=== PATIENT | female | born 1975 | race American Indian/Alaskan Native ===

== ENCOUNTER 2021-12-30 14:00 | Inpatient (IN) | payer MEDICARE ==
--- NOTE | 2021-12-30 14:34 | Consultation ---
History of Present Illness Consult date: 12/30/21 History of present illness: [facility] Consult Note # Demographics Consult Type: Acute Stroke Level 2 (4.5-24 hrs) Patient Location: Emergency Room First Name: LEFTY Last Name: TRICIA Date of : 1975 Age: 46 Gender: Female Facility: [facility] Time of Initial Page ( Time): 12/30/2021, 14:07 Time of Return Call ( Time): 12/30/2021, 14:07 # HPI Chief Complaint: vision changes speech changes weakness (focal) History: Per EMS, patient developed stroke-like symptoms two days ago with blurred vision, then dysarthria yesterday. Reported having left facial droop. History of MS. Last Known Normal: I have collected independent history specific to time last normal or last known well. We have collaborated with the provider and at this time, we have the most current timeline with the information that is available. 2 days Duration: constant intermittent days Associated Symptoms: double vision # Scores Time of exam and NIHSS ( Time): 12/30/2021, 14:20 Level of Consciousness 1a: [0] = Alert; keenly responsive LOC Questions 1b: [0] = Answers both questions correctly LOC Commands 1c: [0] = Performs both tasks correctly Best Gaze 2: [0] = Normal Visual 3: [0] = No visual loss Facial Palsy 4: [0] = Normal symmetrical movements Motor Arm Left 5a: [0] = No drift Motor Arm Right 5b: [0] = No drift Motor Leg Left 6a: [0] = No drift Motor Leg Right 6b: [0] = No drift Limb Ataxia 7: [0] = Absent Sensory 8: [0] = Normal Best Language 9: [0] = No aphasia Dysarthria 10: [0] = Normal Extinction and Inattention 11: [0] = No abnormality NIHSS Total: 0 Modified [place] Scale (mRS) pre-stroke: [0] = No Symptoms Modified [place] Scale total: 0 VAN Screening: Negative # Exam SBP: 183 DBP: 95 Mental Status: awake alert and oriented x 3 follows commands Language: normal speech Cranial Nerves: extra ocular movements intact # ROS Pulmonary: shortness of breath Cardiovascular: no chest pain # PMH-FH-SH Past Medical History: Diabetes hypertension MS Medications: antihypertensive diabetic medication # Data Glucose: 393 # Assessment Impression: MS exacerbation (or pseudoflare), rule-out stroke # Plan Thrombolytic/Intervention: NOT IV Thrombolysis or IA Intervention candidate Thrombolytic Exclusion (< 3 hour window): time of onset unclear Thrombolytic Exclusion: > 4.5 hours Labs: B12 CBC comprehensive metabolic panel ESR hemoglobin A1c lipid panel thiamine troponin TSH urine drug screen ua Infectious work-up Imaging: (urgency: STAT): CT Head without contrast CT Angiogram Head and CT Angiogram Neck AND call back with results if abnormal Imaging: (urgency: routine): MRI Brain with AND without contrast MRI C spine Diagnostic Test: echo without bubble study Therapy/Evaluation: NPO until swallow evaluation PT/OT evaluation speech/swallow consultation Medication: Continue outpatient medication regimen pending diagnostic results, with consideration for IV steroid therapy if MRI reveals new active demyelinating lesions. DVT Prophylaxis: SCD chemical DVT prophylaxis Other: If patient has any neurological deterioration please call me back immediately telemetry monitoring would not pursue stroke work-up if MRI is negative I have discussed my recommendations with the referring provider Disposition: admit # Demographics First Name: LEFTY Last Name: TRICIA Facility: [facility] Medications and Allergies Allergies Allergy/AdvReac Type Severity Reaction Status Date / Time Unable to Assess Allergy Verified 12/30/21 14:07
--- NOTE | 2021-12-30 15:09 | Cat Scan Report ---
CT HEAD WITHOUT CONTRAST INDICATION / CLINICAL INFORMATION: Stroke symptoms. TECHNIQUE: All CT scans at this location are performed using CT dose reduction for ALARA by means of automated e xposure control. COMPARISON: None available. FINDINGS: HEMORRHAGE: No evidence of intracranial hemorrhage or extra-axial fluid collection. EXTRA-AXIAL SPACES: Cortical sulci, sylvian fissures and basilar cisterns have an unremarkable appear ance. VENTRICULAR SYSTEM: The third and lateral ventricles are of normal size and configuration. CEREBRAL PARENCHYMA: Extensive white matter lucency is observed in the periventricular, deep and subc ortical white matter of both cerebral hemispheres. Findings suggest advanced microvascular ischemic c hange. This is an unusual finding in a 46-year-old individual. Other predisposing factors such as hyp ertension, diabetes, cigarette smoking or renal failure In the appropriate clinical setting the possi bility of demyelinating disease could be considered. There is no mass effect. No evidence of recent i nfarction is observed. MIDLINE SHIFT OR HERNIATION: There is no mass effect. CEREBELLUM / BRAINSTEM: Brainstem and cerebellum have an unremarkable appearance. MIDLINE STRUCTURES:No abnormalities of the pituitary gland or pineal region are identified. INTRACRANIAL VESSELS:No abnormalities are identified on this noncontrast head CT. ORBITS: visualized portions of the orbits have an unremarkable appearance. SOFT TISSUES of HEAD: No significant abnormality. CALVARIUM: Evaluation of bone windows reveals no abnormalities. PARANASAL SINUSES / MASTOID AIR CELLS: Visualized portions of the paranasal sinuses are free from inf lammatory mucosal disease. Mastoid air cells are normally pneumatized. ADDITIONAL FINDINGS: None. IMPRESSION: 1. Extensive white matter lucency as described above. This likely reflects advanced microvascular isc hemic change. Correlation with risk factors including hypertension, diabetes, renal failure and cigar ette smoking is suggested. 2. No acute intracranial abnormalities are identified. Signer Name: Avni Delvalle MD Signed: 12/30/2021 3:04 PM Workstation Name: [id number]
[2021-12-30 16:10] LABS: Creatine Kinase MB 3.4 ng/mL (0.0-4.0)
[2021-12-30 16:22] LABS: Basophils % (Auto) 0.8 % (0.0-1.8); Eosinophils # (Auto) 0.1 K/mm3 (0.0-0.4); Eosinophils % (Auto) 2.1 % (0.0-4.3); Hematocrit 39.7 % (30.3-42.9); Hemoglobin 12.3 gm/dl (10.1-14.3); Lymphocytes # (Auto) 1.7 K/mm3 (1.2-5.4); Lymphocytes % (Auto) 38.8 % (13.4-35.0); Mean Corpuscular HGB Conc 31 % (30-34); Mean Corpuscular Volume 76 fl (79-97); Monocytes # (Auto) 0.3 K/mm3 (0.0-0.8); Platelet Count 178 K/mm3 (140-440); Red Blood Count 5.25 M/mm3 (3.65-5.03); Red Cell Distribution Width 15.4 % (13.2-15.2)
[2021-12-30 16:32] LABS: INR 0.86 (0.87-1.13); Partial Thromboplastin Time 28.2 Sec. (24.2-36.6); Thrombin Time 17.2 Sec. (15.1-19.6)
[2021-12-30 18:48] LABS: BUN/Creatinine Ratio 18; Blood Urea Nitrogen 16 mg/dL (7-17); Hemolysis Index 4
[2021-12-30] MEDS ORDERED: SODIUM CHLORIDE 0.9% 1000 ML 1,000 ML IV ONE (18:54)
[2021-12-30] MEDS ORDERED: INSULIN REGULAR, HUMAN 100 UNITS/1 ML IV ONE (18:55)
--- NOTE | 2021-12-30 19:51 | Cat Scan Report ---
CT angio neck HISTORY: CVA symptoms 100ml of [id number] COMPARISON: CT head same day. TECHNIQUE: CTA of the neck and head is performed after IV contrast. 3-D/MIP reformats were postproces sed. Percentage stenosis is determined by direct quantitative measurements of diseased internal adorno tid artery diameter compared with normal distal internal carotid artery reference segments or by crit eria similar to NASCET where applicable. All CT scans at this location are performed using CT dose re duction for ALARA by means of automated exposure control. FINDINGS: CTA NECK: Aortic arch: No significant abnormality. Cervical vertebral arteries: The right vertebral artery is diminutive throughout its entire course. D ominant left vertebral artery. No occlusion or hemodynamically significant stenosis. Common Carotid arteries: No occlusion or hemodynamically significant stenosis. Internal carotid arteries: No occlusion or hemodynamically significant stenosis. CTA HEAD: Intracranial internal carotid arteries: No occlusion or significant stenosis. Anterior cerebral arteries: No occlusion or significant stenosis. Middle cerebral arteries: No occlusion or significant stenosis. Intracranial vertebral arteries: The distal right V4 segment of the vertebral artery is difficult to appreciate but the entire course is diminutive and it is tortuous distally right before the basilar j unction. There could be high stenosis or occlusion but this is difficult to determine given its dimin utive caliber. Basilar artery: No occlusion or significant stenosis. Posterior cerebral arteries: No occlusion or significant stenosis. No aneurysm. Additional findings: White matter disease, please see CT head. IMPRESSION: 1. CTA NECK: The right vertebral artery is diminutive with a dominant left vertebral artery, normal v ariant. No occlusion or significant stenosis of the carotid or vertebral arteries. 2. CTA HEAD: The distal right V4 segment just before the basilar junction is difficult to appreciate and could be related to high-grade stenosis or occlusion is difficult to determine. The dominant left vertebral artery is widely patent. The remainder of the vessels are widely patent without occlusion or significant stenosis. Signer Name: Abraham Roca MD Signed: 12/30/2021 7:47 PM Workstation Name: [id number]
--- NOTE | 2021-12-30 19:59 | Emergency Department Report ---
ED Neuro Deficit HPI - General Chief Complaint: Neuro Symptoms/Deficit Stated Complaint: STROKE SYMPTOMS Time Seen by Provider: 12/30/21 14:14 Source: patient, EMS Mode of arrival: Stretcher Limitations: No Limitations - History of Present Illness Initial Comments: Patient is a 46-year-old female history of MS presenting to ED with complaint of left-sided weakness, vision changes and numbness in her face beginning 2 days ago. - Related Data Allergies/Adverse Reactions: Allergies Allergy/AdvReac Type Severity Reaction Status Date / Time Unable to Assess Allergy Verified 12/30/21 14:07 ED Review of Systems ROS: Stated complaint: STROKE SYMPTOMS Other details as noted in HPI Constitutional: denies: chills, fever Respiratory: denies: cough, shortness of breath, wheezing Cardiovascular: denies: chest pain, palpitations Gastrointestinal: denies: abdominal pain, nausea, diarrhea Genitourinary: denies: urgency, dysuria, discharge Neurological: weakness, numbness Psychiatric: denies: anxiety, depression ED Neuro Physical Exam - General Limitations: No Limitations General appearance: alert, in no apparent distress Suspected Stroke: Yes - Head Head exam: Present: atraumatic, normocephalic - Eye Eye exam: Present: normal appearance, EOMI - Respiratory Respiratory exam: Present: normal lung sounds bilaterally. Absent: respiratory distress - Cardiovascular Cardiovascular Exam: Present: regular rate, normal rhythm, normal heart sounds - GI/Abdominal GI/Abdominal exam: Present: soft. Absent: distended, tenderness - Rectal Rectal exam: Present: deferred - Neurological Exam Neurological exam: Present: alert, oriented X3, CN II-XII intact - NIHSS Assessment Interval: 24 hours post onset of symptoms +-20 minutes 1a. Level of Consciousness: alert/keenly responsive 1b. LOC Questions: answers both correctly 1c. LOC Commands: performs tasks correctly 2. Best Gaze: normal 3. Visual: no visual loss 4. Facial Palsy: normal symmetrical movement 5b. Motor Arm Right: no drift 5a. Motor Arm Left: no drift 6a. Motor Leg Left: no drift 6b. Motor Leg Right: no drift 7. Limb Ataxia: absent 8. Sensory: normal 9. Best Language: no aphasia 10. Dysarthria: normal 11. Extinction/Inattention: no abnormality Total Score: 0 Stroke Severity: No Stroke Symptoms - Psychiatric Psychiatric exam: Present: normal affect, normal mood - Skin Skin exam: Present: warm, dry, intact, normal color ED Course Vital Signs 12/30/21 12/30/21 12/30/21 14:45 15:00 15:17 Temperature 98.7 F Pulse Rate 87 Respiratory 22 Rate Blood Pressure 157/87 O2 Sat by Pulse 100 100 Oximetry 12/30/21 12/30/21 12/30/21 16:00 17:28 18:00 Temperature Pulse Rate 87 91 H 81 Respiratory 20 15 14 Rate Blood Pressure 142/79 162/83 158/92 O2 Sat by Pulse 97 95 99 Oximetry 12/30/21 18:56 Temperature Pulse Rate Respiratory Rate Blood Pressure O2 Sat by Pulse 100 Oximetry - Lab Data Result diagrams: 12/30/21 15:16 12/30/21 15:16 Lab Results 12/30/21 12/30/21 12/30/21 Range/Units 15:16 15:16 15:16 WBC 4.4 L (4.5-11.0) K/mm3 RBC 5.25 H (3.65-5.03) M/mm3 Hgb 12.3 (10.1-14.3) gm/dl Hct 39.7 (30.3-42.9) % MCV 76 L (79-97) fl MCH 24 L (28-32) pg MCHC 31 (30-34) % RDW 15.4 H (13.2-15.2) % Plt Count 178 (140-440) K/mm3 Lymph % (Auto) 38.8 H (13.4-35.0) % [place] % (Auto) 7.0 (0.0-7.3) % Eos % (Auto) 2.1 (0.0-4.3) % Baso % (Auto) 0.8 (0.0-1.8) % Lymph # (Auto) 1.7 (1.2-5.4) K/mm3 [place] # (Auto) 0.3 (0.0-0.8) K/mm3 Eos # (Auto) 0.1 (0.0-0.4) K/mm3 Baso # (Auto) 0.0 (0.0-0.1) K/mm3 Seg Neutrophils % 51.3 (40.0-70.0) % Seg Neutrophils # 2.3 (1.8-7.7) K/mm3 PT 12.6 (12.2-14.9) Sec. INR 0.86 L (0.87-1.13) APTT 28.2 (24.2-36.6) Sec. Thrombin Time 17.2 (15.1-19.6) Sec. Sodium (137-145) mmol/L Potassium (3.6-5.0) mmol/L Chloride (98-107) mmol/L Carbon Dioxide (22-30) mmol/L Anion Gap mmol/L BUN (7-17) mg/dL Creatinine (0.6-1.2) mg/dL Estimated GFR ml/min BUN/Creatinine Ratio % Glucose (65-100) mg/dL Calcium (8.4-10.2) mg/dL Total Creatine Kinase 176 H (30-135) units/L CK-MB (CK-2) 3.4 (0.0-4.0) ng/mL CK-MB (CK-2) Rel Index 1.9 (0-4) Troponin T < 0.010 (0.00-0.029) ng/mL 12/30/21 Range/Units 15:16 WBC (4.5-11.0) K/mm3 RBC (3.65-5.03) M/mm3 Hgb (10.1-14.3) gm/dl Hct (30.3-42.9) % MCV (79-97) fl MCH (28-32) pg MCHC (30-34) % RDW (13.2-15.2) % Plt Count (140-440) K/mm3 Lymph % (Auto) (13.4-35.0) % [place] % (Auto) (0.0-7.3) % Eos % (Auto) (0.0-4.3) % Baso % (Auto) (0.0-1.8) % Lymph # (Auto) (1.2-5.4) K/mm3 [place] # (Auto) (0.0-0.8) K/mm3 Eos # (Auto) (0.0-0.4) K/mm3 Baso # (Auto) (0.0-0.1) K/mm3 Seg Neutrophils % (40.0-70.0) % Seg Neutrophils # (1.8-7.7) K/mm3 PT (12.2-14.9) Sec. INR (0.87-1.13) APTT (24.2-36.6) Sec. Thrombin Time (15.1-19.6) Sec. Sodium 134 L (137-145) mmol/L Potassium 4.7 (3.6-5.0) mmol/L Chloride 102.6 (98-107) mmol/L Carbon Dioxide 26 (22-30) mmol/L Anion Gap 10 mmol/L BUN 16 (7-17) mg/dL Creatinine 0.9 (0.6-1.2) mg/dL Estimated GFR > 60 ml/min BUN/Creatinine Ratio 18 % Glucose 460 H (65-100) mg/dL Calcium 9.0 (8.4-10.2) mg/dL Total Creatine Kinase (30-135) units/L CK-MB (CK-2) (0.0-4.0) ng/mL CK-MB (CK-2) Rel Index (0-4) Troponin T (0.00-0.029) ng/mL - Medical Decision Making 46-year-old female with history of MS presenting with left-sided weakness, blurred vision and numbness in her face. Symptoms began 2 days ago. Code stroke paged. NIH score is 0. CT head unremarkable. Recommendations per neurology are for CTA head and neck, MRI and admission for further work-up. On laboratory evaluation patient has serum glucose of 460. She is a known diabetic. She was given 1 L saline bolus along with 10 units of IV insulin. Will admit to hospitalist for further work-up and management. Critical care attestation.: If time is entered above; I have spent that time in minutes in the direct care of this critically ill patient, excluding procedure time. ED Disposition Clinical Impression: Symptoms of cerebrovascular accident (CVA), Hyperglycemia due to type 2 diabetes mellitus Disposition: 09 ADMITTED INPATIENT Is pt being admited?: Yes Condition: Stable Instructions: Diabetes Mellitus Type 2 in Adults (ED)
[2021-12-30] MEDS ORDERED: MORPHINE 4 MG/1 ML INJ IV PRN (20:17)
[2021-12-30] MEDS ORDERED: ACETAMINOPHEN 325 MG TAB PO PRN (20:17)
[2021-12-30] MEDS ORDERED: ONDANSETRON 4 MG/2 ML INJ IV PRN (20:17)
[2021-12-31] MEDS: MORPHINE 2 MG/1 ML INJ IV PRN ×2 (02:57→08:22)
--- NOTE | 2021-12-31 06:51 | History and Physical Report ---
History of Present Illness Date of examination: 12/30/21 Date of admission: 12/30/21 20:17 Chief complaint: Blurred vision and numbness both lower EXTR History of present illness: 46-year-old female with history of multiple sclerosis comes in for numbness of both lower extremities and muscle spasm and blurred vision for 2 days. Patient feels that multiple sclerosis has exacerbated. Patient is on interferon beta 1A injections once monthly. Patient also has high blood glucose levels recently. Many nonspecific complaints. Past History Past Medical History: diabetes, other (Multiple sclerosis) Past Surgical History: Other Social history: lives with family, full code Family history: hypertension Medications and Allergies Allergies Allergy/AdvReac Type Severity Reaction Status Date / Time Unable to Assess Allergy Verified 12/30/21 14:07 Active Meds: Active Medications Acetaminophen (Acetaminophen 325 Mg Tab) 650 mg PO Q4H PRN PRN Reason: Pain MILD(1-3)/Fever >100.5/GREER Enoxaparin Sodium (Enoxaparin 40 Mg/0.4 Ml Inj) 40 mg SUB-Q QDAY NORMAN Insulin Glargine (Insulin Glargine 100 Units/Ml) 25 units SUB-Q Q24H NORMAN Insulin Human Lispro (Insulin Lispro 100 Unit/Ml) 0 unit SUB-Q ACHS NORMAN; Protocol Morphine Sulfate (Morphine 2 Mg/1 Ml Inj) 2 mg IV Q4H PRN PRN Reason: Pain, Moderate (4-6) Last Admin: 12/31/21 02:57 Dose: 2 mg Morphine Sulfate (Morphine 4 Mg/1 Ml Inj) 4 mg IV Q4H PRN PRN Reason: Pain , Severe (7-10) Ondansetron HCl (Ondansetron 4 Mg/2 Ml Inj) 4 mg IV Q8H PRN PRN Reason: Nausea And Vomiting Sodium Chloride (Sodium Chloride 0.9% 10 Ml Flush Syringe) 10 ml IV BID NORMAN Last Admin: 12/31/21 02:57 Dose: 10 ml Sodium Chloride (Sodium Chloride 0.9% 10 Ml Flush Syringe) 10 ml IV PRN PRN PRN Reason: LINE FLUSH Review of Systems All systems: negative Neurological: parathesias (Numbness in both lower EXTR.), other (Blurred vision on the right eye and also muscle spasms) Psychiatric: anxiety Exam - Constitutional Vitals: Temp Pulse Resp BP Pulse Ox 97.8 F 80 16 141/77 99 12/31/21 03:35 12/31/21 03:35 12/31/21 03:35 12/31/21 03:35 12/31/21 03:35 General appearance: Present: no acute distress, well-nourished - EENT Eyes: Present: PERRL ENT: hearing intact, clear oral mucosa - Neck Neck: Present: supple, normal ROM - Respiratory Respiratory effort: normal Respiratory: bilateral: CTA - Cardiovascular Heart rate: 78 Rhythm: regular Heart Sounds: Present: S1 & S2. Absent: rub, click - Extremities Extremities: no ischemia, pulses intact, pulses symmetrical, No edema Peripheral Pulses: within normal limits - Abdominal General gastrointestinal: Present: soft, non-tender, non-distended, normal bowel sounds Female genitourinary: Present: normal - Rectal Rectal Exam: deferred - Integumentary Integumentary: Present: clear, warm, dry - Musculoskeletal Musculoskeletal: gait normal, strength equal bilaterally - Psychiatric Psychiatric: appropriate mood/affect, intact judgment & insight - Neurologic Neurologic: CNII-XII intact, moves all extremities - Allied Health Allied health notes reviewed: nursing, case management HEART Score - HEART Score Troponin: Troponin T < 0.010 ng/mL (0.00-0.029) 12/30/21 15:16 Results - Labs CBC & Chem 7: 12/30/21 15:16 12/30/21 15:16 Labs: Laboratory Last Values WBC 4.4 K/mm3 (4.5-11.0) L 12/30/21 15:16 RBC 5.25 M/mm3 (3.65-5.03) H 12/30/21 15:16 Hgb 12.3 gm/dl (10.1-14.3) 12/30/21 15:16 Hct 39.7 % (30.3-42.9) 12/30/21 15:16 MCV 76 fl (79-97) L 12/30/21 15:16 MCH 24 pg (28-32) L 12/30/21 15:16 MCHC 31 % (30-34) 12/30/21 15:16 RDW 15.4 % (13.2-15.2) H 12/30/21 15:16 Plt Count 178 K/mm3 (140-440) 12/30/21 15:16 Lymph % (Auto) 38.8 % (13.4-35.0) H 12/30/21 15:16 [place] % (Auto) 7.0 % (0.0-7.3) 12/30/21 15:16 Eos % (Auto) 2.1 % (0.0-4.3) 12/30/21 15:16 Baso % (Auto) 0.8 % (0.0-1.8) 12/30/21 15:16 Lymph # (Auto) 1.7 K/mm3 (1.2-5.4) 12/30/21 15:16 [place] # (Auto) 0.3 K/mm3 (0.0-0.8) 12/30/21 15:16 Eos # (Auto) 0.1 K/mm3 (0.0-0.4) 12/30/21 15:16 Baso # (Auto) 0.0 K/mm3 (0.0-0.1) 12/30/21 15:16 Seg Neutrophils % 51.3 % (40.0-70.0) 12/30/21 15:16 Seg Neutrophils # 2.3 K/mm3 (1.8-7.7) 12/30/21 15:16 PT 12.6 Sec. (12.2-14.9) 12/30/21 15:16 INR 0.86 (0.87-1.13) L 12/30/21 15:16 APTT 28.2 Sec. (24.2-36.6) 12/30/21 15:16 Thrombin Time 17.2 Sec. (15.1-19.6) 12/30/21 15:16 Sodium 134 mmol/L (137-145) L 12/30/21 15:16 Potassium 4.7 mmol/L (3.6-5.0) 12/30/21 15:16 Chloride 102.6 mmol/L (98-107) 12/30/21 15:16 Carbon Dioxide 26 mmol/L (22-30) 12/30/21 15:16 Anion Gap 10 mmol/L 12/30/21 15:16 BUN 16 mg/dL (7-17) 12/30/21 15:16 Creatinine 0.9 mg/dL (0.6-1.2) 12/30/21 15:16 Estimated GFR > 60 ml/min 12/30/21 15:16 BUN/Creatinine Ratio 18 % 12/30/21 15:16 Glucose 460 mg/dL (65-100) H 12/30/21 15:16 POC Glucose 127 mg/dL (70-105) H 12/30/21 22:05 Calcium 9.0 mg/dL (8.4-10.2) 12/30/21 15:16 Total Creatine Kinase 176 units/L (30-135) H 12/30/21 15:16 CK-MB (CK-2) 3.4 ng/mL (0.0-4.0) 12/30/21 15:16 CK-MB (CK-2) Rel Index 1.9 (0-4) 12/30/21 15:16 Troponin T < 0.010 ng/mL (0.00-0.029) 12/30/21 15:16 - Imaging and Cardiology Imaging and Cardiology: Head CT Extensive white matter lucency is observed in the periventricular deep and subcortical areas. White matter of both cerebral hemispheres. Findings suggest advanced microvascular ischemic change. Final diagnosis Extensive white matter lucency as described above. Head CT and neck CTA Right vertebral artery with diminutive with a dominant left vertebral artery. No occlusion. CT of the head in the distal right V4 segment just before the basilar density and is difficult to appreciate. And will be related to high-grade stenosis or occlusion is difficult to determine. Cope/IV: Voiding Method Toilet Assessment and Plan Advance Directives: Yes (Full code) VTE prophylaxis?: Chemical Plan of care discussed with patient/family: Yes - Patient Problems (1) Multiple sclerosis exacerbation Current Visit: Yes Status: Acute Plan to address problem: Not convinced about her multiple sclerosis exacerbation Initiated on IV Solu-Medrol 1 g Neurology consult requested (2) T2DM (type 2 diabetes mellitus) Current Visit: Yes Status: Chronic Qualifiers: Diabetes mellitus pharmacist in charge owner insulin use: unspecified longterm insulin use status Plan to address problem: Uncontrolled Patient initiated on coverage and Lantus at nighttime Patient counseled about high blood glucose levels Patient is nonchalant (3) DVT prophylaxis Current Visit: Yes Status: Acute Plan to address problem: On heparin and GI prophylaxis (4) Advance care planning Current Visit: Yes Status: Acute Plan to address problem: Disease education conducted, care plan discussed, diagnosis discussed and prognosis discussed. Patient acknowledged understanding of the care plan. +30 minutes. Patient is full code.
[2021-12-31] MEDS ORDERED: INSULIN GLARGINE 100 UNITS/ML SUB-Q SCH (07:00)
[2021-12-31] MEDS ORDERED: methylPREDNISolone Sod Succinate 125 MG/2 ML INJ IV SCH (07:00)
[2021-12-31] MEDS ORDERED: methylPREDNISolone Sod Suc 1,000 MG in SODIUM CHLORIDE 0.9% 250ML 250 ML IV SCH (08:00)
[2021-12-31] MEDS: INSULIN LISPRO 100 UNIT/ML SUB-Q SCH ×2 (08:23→12:12)
[2021-12-31 09:07] LABS: Hematocrit 39.6 % (30.3-42.9); Hemoglobin 12.8 gm/dl (10.1-14.3); Mean Corpuscular HGB Conc 32 % (30-34); Mean Corpuscular Volume 74 fl (79-97); Platelet Count 187 K/mm3 (140-440); Red Blood Count 5.34 M/mm3 (3.65-5.03); Red Cell Distribution Width 15.2 % (13.2-15.2)
[2021-12-31 09:23] LABS: BUN/Creatinine Ratio 16; Blood Urea Nitrogen 13 mg/dL (7-17); Calcium 8.7 mg/dL (8.4-10.2); Chol/HDL Ratio 2.96 %; HDL Cholesterol 83 mg/dL (40-59); Hemolysis Index 3; LDL Cholesterol,Direct 155 mg/dL (50-130)
--- NOTE | 2021-12-31 09:55 | Electrocardiograph Report ---
[facility] Test Date: 2021-12-30 Test Time: 15:42:58 Pat Name: LEFTY CLARKE Department: Room: A473 1 Gender: F [employer]or: NURSE : 1975 Requested By: AURELIO POLANCO Order Number: [id number] Reading MD: Byron Cedeno Measurements Intervals [place] Rate: 84 P: 49 PA: 143 QRS: 48 QRSD: 72 T: 67 QT: 388 QTc: 459 Interpretive Statements Sinus rhythm Probable left atrial enlargement nonspecific st-t anterior leads No previous ECG available for comparison Electronically Signed On 12-31-2021 9:55:02 EDT by Byron Cedeno
[2021-12-31] MEDS ORDERED: ENOXAPARIN 40 MG/0.4 ML INJ SUB-Q SCH (10:00)
[2021-12-31] MEDS ORDERED: NON-FORMULARY EACH (Losartan [Cozaar] 100 MG Tablet) PO SCH (10:15)
[2021-12-31] MEDS ORDERED: metFORMIN 500 MG TAB PO SCH (10:30)
[2021-12-31 12:35] VITALS: BP 164/95
[2021-12-31] MEDS ORDERED: LOSARTAN 50 MG TAB PO SCH (13:00)
--- NOTE | 2021-12-31 14:53 | Discharge Summary ---
Providers - Providers Date of Admission: 12/30/21 20:17 Date of discharge: 12/31/21 Attending physician: THEA WINN MD 12/31/21 07:51 Consult to Physician [CONS] Routine Comment: Consulting Provider: CHELA CRISTOBAL Physician Instructions: Reason For Exam: MS exacerbation vs CVA 12/31/21 07:52 Consult to Physician [CONS] Routine Comment: Consulting Provider: CHASTITY MONTEIRO Physician Instructions: Reason For Exam: MS exacerbation vs CVA 12/31/21 09:59 Physical Therapy Evaluation and Treat [CONS] Routine Comment: Reason For Exam: MS flare with left sided weakness Hospitalization Reason for admission: CVA-ruled out, multiple sclerosis exacerbation Condition: Stable Pertinent studies: Reviewed. Procedures: None. Hospital course: The patient is a 46F with PMH of multiple sclerosis, hypertension, insulin- dependent type 2 diabetes mellitus who presented with acute weakness of her L upper and lower extremities. The patient described her symptoms as being similar to previous MS exacerbations. Upon arrival in the ED, the patient was found to be hemodynamically stable. She underwent CT head noncontrast that was unremarkable. She was evaluated by tele-Neurology, and she was not deemed to be a candidate for TPA. The patient was admitted for CVA workup vs management of acute multiple sclerosis exacerbation. The patient left AMA. Disposition: LEFT AGAINST MEDICAL ADVICE Final Discharge Diagnosis (Prints w/discharge instructions): Multiple sclerosis exacerbation, hypertension, insulin dependent type 2 diabetes mellitus with hyperglycemia Time spent for discharge: 45 min Core Measure Documentation - Palliative Care Palliative Care/ Comfort Measures: Not Applicable - Core Measures Any of the following diagnoses?: none Exam - Constitutional Vitals: Temp Pulse Resp BP Pulse Ox 97.4 F L 90 18 164/95 100 12/31/21 11:59 12/31/21 11:59 12/31/21 11:59 12/31/21 11:59 12/31/21 11:59 General appearance: Present: no acute distress, well-nourished, other (tearful) - EENT Eyes: Present: PERRL, EOM intact ENT: hearing intact, clear oral mucosa, dentition normal - Neck Neck: Present: supple, normal ROM - Respiratory Respiratory effort: normal Respiratory: bilateral: CTA - Cardiovascular Rhythm: regular Heart Sounds: Present: S1 & S2 - Extremities Extremities: no ischemia, pulses intact, pulses symmetrical, No edema, normal temperature, normal color Peripheral Pulses: within normal limits - Abdominal General gastrointestinal: Present: soft, non-tender, non-distended, normal bowel sounds Female genitourinary: Present: deferred - Rectal Rectal Exam: deferred - Integumentary Integumentary: Present: clear, warm, dry - Musculoskeletal Musculoskeletal: strength equal bilaterally, left sided weakness - Psychiatric Psychiatric: appropriate mood/affect, intact judgment & insight, memory intact, cooperative - Neurologic Neurologic: CNII-XII intact, moves all extremities, other (decreased sensation in L upper and lower extremities; L facial drooping of mouth) - Allied Health Allied health notes reviewed: nursing Plan Activity: advance as tolerated Diet: low salt, diabetic Additional Instructions: The patient is a 46F with PMH of multiple sclerosis, hypertension, insulin-dependent type 2 diabetes mellitus who presented with acute weakness of her L upper and lower extremities. The patient described her symptoms as being similar to previous MS exacerbations. Upon arrival in the ED, the patient was found to be hemodynamically stable. She underwent CT head noncontrast that was unremarkable. She was evaluated by tele-Neurology, and she was not deemed to be a candidate for TPA. The patient was admitted for CVA workup vs management of acute multiple sclerosis exacerbation. The patient left AMA. Care Plan Goals: Patient left AMA. Assessment: The patient is a 46F with PMH of multiple sclerosis, hypertension, insulin- dependent type 2 diabetes mellitus who presented with acute weakness of her L upper and lower extremities. The patient described her symptoms as being similar to previous MS exacerbations. Upon arrival in the ED, the patient was found to be hemodynamically stable. She underwent CT head noncontrast that was unremarkable. She was evaluated by tele-Neurology, and she was not deemed to be a candidate for TPA. The patient was admitted for CVA workup vs management of acute multiple sclerosis exacerbation. The patient left AMA.
--- NOTE | 2021-12-31 17:08 | Magnetic Resonance Report ---
MRI BRAIN WITHOUT AND WITH CONTRAST INDICATION / CLINICAL INFORMATION: MS exacerbation vs CVA, UNSTEADY GAIT, WEAKNESS. TECHNIQUE: Multiplanar, multisequence MR images of the brain were obtained. Contrast: Clairscan: 16 ml, administered intravenously. COMPARISON: CT head 12/30/2021 FINDINGS: BRAIN / INTRACRANIAL CONTENTS: 2 small (8 x 4 mm) foci of restricted diffusion are present within the lilia. These are present in the anterior aspect of lilia lateralizing to the right of the midline and in the central portion of the p osterior lilia. There are corresponding findings of decreased signal intensity on ADC map imaging and hyperintensity on FLAIR and T2-weighted scans. These findings reflect acute small pontine infarctions . Brainstem and cerebellum have an otherwise unremarkable appearance. Ventricles and cortical sulci are normal in size and configuration. There is no mass effect. No evide nce of intracranial hemorrhage or extra-axial fluid collection is seen. Extensive periventricular whi te matter hyperintensities observed in both cerebral hemispheres. History of multiple sclerosis is no t provided. Findings are consistent with the presence of demyelinating disease.. There is no indicati on of remote cortical infarction. MIDLINE STRUCTURES:No abnormalities are seen to involve the pituitary gland. Pineal region has an unr emarkable appearance. CRANIOCERVICAL JUNCTION: No abnormalities are identified at the craniocervical junction. VASCULAR FLOW-VOIDS: Normal flow-voids are present within the major intracranial vessels. ORBITS: The orbits have an unremarkable appearance. SINUSES / MASTOIDS: There is no indication of inflammatory disease in the paranasal sinuses or mastoi d air cells. Following the administration of intravenous contrast enhancement of normal vascular structures is dem onstrated. A single punctate focus of abnormal contrast enhancement is observed in the right globus p allidus. This is of indeterminate etiology. Considerations include late subacute small deep infarctio n versus small focus of demyelinating disease. No corresponding abnormalities are observed on other p ulse sequences. IMPRESSION: 1. Findings indicate the presence of 2 discrete, small, acute pontine infarctions as described above. 2. Extensive white matter disease. Given the patient's clinical diagnosis of multiple sclerosis of th e white matter changes are likely secondary to demyelinating disease. 3. Small, punctate focus of abnormal contrast enhancement in the right globus pallidus. Signer Name: Avni Delvalle MD Signed: 12/31/2021 5:03 PM Workstation Name: [id number]
[2022-01-01] MEDS ORDERED: INSULIN GLARGINE 100 UNITS/ML SUB-Q SCH (08:00)
== END 2021-12-31 16:17 | disposition left against medical advice (07) | DRG 60 ==
LOC: ED 14:00 → 3A 20:17 → 4A 21:09
PROVIDERS: ADMIT Internal Medicine; ATTEND Student in an Organized Health Care Education/Training Program
DX: G35 Multiple sclerosis (principal); E11.65 Type 2 diabetes mellitus with hyperglycemia; I10 Essential (primary) hypertension; Z53.29 Procedure and treatment not carried out because of patient's decision for other reasons; Z82.49 Family history of ischemic heart disease and other diseases of the circulatory system
CPT/HCPCS: 36415; 70450; 70496; 70498; 70553; 80048; 80061; 82550; 82553; 82962; 83036; 84484; 85025; 85027; 85610; 85670; 85730; 93005; 99285; 99406; G0378; Q9967; A9575; J1650; J1815; J2270; J2930; J7030; J7050